=== PATIENT | female | born 1980 | race Caucasian/White ===

== ENCOUNTER 2017-06-19 08:34 | Day surgery (SDC) | payer BC ==
[~2017-06-19] VITALS: Ht 165.1 cm; Wt 91.9 kg
[~2017-06-19 08:34] MED LIST: GABA-318 PO; SODIUM CHLORIDE 0.9% 1000ML 1,000 ML IV ONE
[2017-06-19 09:00] VITALS: BP 136/81
[2017-06-19] MEDS ORDERED: LIDOCAINE HCL 2% 20ML ONE (10:38)
[2017-06-19] MEDS ORDERED: PROPOFOL 10 MG/ML 20ML VIAL IV ONE (10:38)
[2017-06-19] MEDS ORDERED: GLYCOPYRROLATE 0.2 MG/ML 5 ML VIAL ONE (10:39)
== END 2017-06-19 11:35 | disposition home or self-care (01) ==
LOC: DAH 08:34 → ENDO 08:34
PROVIDERS: ATTEND Internal Medicine
DX: K57.32 Diverticulitis of large intestine without perforation or abscess without bleeding (principal); D12.3 Benign neoplasm of transverse colon; K62.1 Rectal polyp; Z98.890 Other specified postprocedural states; Z79.899 Other long term (current) drug therapy; Z68.36 Body mass index [BMI] 36.0-36.9, adult; K57.30 Diverticulosis of large intestine without perforation or abscess without bleeding; E66.9 Obesity, unspecified
CPT/HCPCS: 45380; 81025; A4606; J2704; J3490 ×2; J7030